=== PATIENT | male | born 1995 | race Caucasian/White ===

== ENCOUNTER 2019-06-13 18:48 | Emergency (ER) | payer MEDICAID ==
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
[2019-06-13 19:30] LABS: BUPRENORPHINE,URINE NEGATIVE (NEGATIVE); MARIJUANA,URINE NEGATIVE (NEGATIVE); METHYLENEDIOXYMETHAMP,UR NEGATIVE (NEGATIVE); PHENCYCLIDINE,URINE NEGATIVE (NEGATIVE)
[2019-06-13 19:53] LABS: CHLORIDE,CL 103 mmol/L (98-107); SODIUM,NA 141 mmol/L (136-145)
[2019-06-13 19:56] LABS: ACETAMINOPHEN 0 ug/ml (10-30); ANION GAP 14.2 mmol/L (10-20)
[2019-06-13] MEDS: Sertraline 50 MG Tab PO SCH (20:05)
== END 2019-06-13 20:10 ==
LOC: SUPCPDRO 18:48 → VM.ED 18:48
DX: F32.9 Major depressive disorder, single episode, unspecified (principal); Z91.048 Other nonmedicinal substance allergy status; Z79.899 Other long term (current) drug therapy
CPT/HCPCS: 36415; 80053; 80305-QW; 80307; 81001; 84443; 85025; 86140; 99285; A9270-GY